=== PATIENT | female | born 1965 | race Caucasian/White ===

== ENCOUNTER 2018-07-07 21:21 | Emergency (ER) | payer MEDICAID ==
[~2018-07-07] VITALS: Ht 157.5 cm; Wt 70.3 kg
[2018-07-07 21:23] VITALS: BP 172/93
[2018-07-07] MEDS ORDERED: AMPICILLIN/SULBACTAM 1.5 GM in NACL 0.9% 50 ML IV ONE (22:50)
[2018-07-07] MEDS ORDERED: INSULIN REGULAR, HUMAN 100 UNIT/ML VIAL IVP ONE (22:50)
[2018-07-07] MEDS ORDERED: AMPICILLIN/SULBACTAM 1.5 GM VIAL ONE (23:11)
[2018-07-07 23:24] LABS: BASOPHILS % (AUTO) 0.3 % (0.0-2.0); EOSINOPHILS # (AUTO) 0.1 K/uL (0-0.4); EOSINOPHILS % (AUTO) 1.9 % (0.0-4.0); HEMATOCRIT 36.7 % (36-48); HEMOGLOBIN 11.7 g/dL (12.0-16.0); LYMPHOCYTES % (AUTO) 29.5 % (20.5-51.1); MEAN CORPUSCULAR HEMOGLOBIN 25 pg (27-31); MEAN CORPUSCULAR HGB CONC 32 g/dL (33-37); MEAN CORPUSCULAR VOLUME 77.3 fL (80-94); MONOCYTES # (AUTO) 0.4 K/uL (0.8-1.0); MONOCYTES % (AUTO) 5.4 % (1.7-9.3); NEUTROPHILS # (AUTO) 4.3 K/uL (1.8-7.7); NEUTROPHILS % (AUTO) 62.9 % (42.2-75.2); PLATELET COUNT (AUTO) 303 K/uL (140-450); RED BLOOD CELL COUNT(AUTO) 4.75 MIL/uL (4.20-5.40); WHITE BLOOD COUNT (AUTO) 6.8 K/uL (4.8-10.8)
[2018-07-07] MEDS ORDERED: ENALAPRILAT 2.5 MG/2 ML VIAL IVP ONE (23:30)
[2018-07-07 23:35] LABS: ANION GAP 11.4 (8-16); CARBON DIOXIDE 28.5 mmol/L (21-32); CREATININE 0.6 mg/dL (0.6-1.3); POTASSIUM 3.9 mmol/L (3.5-5.1)
[2018-07-07 23:41] LABS: ALBUMIN 3.7 g/dL (3.4-5.0); TOTAL BILIRUBIN 0.3 mg/dL (0.0-1.0)
[2018-07-08 00:19] LABS: APPEARANCE,URINE CLEAR (CLEAR); BILIRUBIN,URINE NEGATIVE (NEGATIVE); BLOOD, URINE NEGATIVE (NEGATIVE); COLOR,URINE YELLOW (YELLOW); LEUKOCYTE ESTERASE ,URINE NEGATIVE (NEGATIVE); NITRITE, URINE NEGATIVE (NEGATIVE); PH,URINE 6.5 (5.0-9.0); UGLUCOSE 3+ (NEGATIVE)
[2018-07-08 00:34] LABS: RBC,URINE 0-5 (RARE) /HPF (0-5); WBC,URINE 0-5 (RARE) /HPF (0-5)
[2018-07-08 01:21] VITALS: BP 127/73
== END 2018-07-08 01:22 | disposition home or self-care (01) ==
LOC: MED 21:21
DX: L03.032 Cellulitis of left toe (principal); E11.9 Type 2 diabetes mellitus without complications; I10 Essential (primary) hypertension
CPT/HCPCS: 36415; 80053; 81001; 82948; 85025; 87040; 96365; 96375; 99284; J0295; J3490